=== PATIENT | male | born 1980 | race Caucasian/White ===

== ENCOUNTER 2016-10-20 19:44 | Emergency (ER) | payer OTHER ==
[2016-10-20 20:02] VITALS: BP 116/71
--- NOTE | 2016-10-20 20:36 | UC ---
Throat Pain/Nasal Yossi HPI - HPI Summary HPI Summary: ST starting 4 days ago, some chills and fatigue. Denies measured fever, cough, nasal congestion, vomiting, or rash. Has 4-yr-old child at home in pre-K - History of Current Complaint Chief Complaint: UCRespiratory Stated Complaint: SORE THROAT Time Seen by Provider: 10/20/16 20:17 Hx Obtained From: Patient Onset/Duration: Gradual Onset, Lasting Days Severity: Moderate Cough: None Associated Signs & Symptoms: Negative: Fever, Vomiting, Rash - Allergies/Home Medications Allergies/Adverse Reactions: Allergies Allergy/AdvReac Type Severity Reaction Status Date / Time No Known Allergies Allergy Verified 10/20/16 19:55 Home Medications: Home Medications Calcium Ascorbate [Vitamin C] 500 mg PO DAILY 10/20/16 [History Confirmed ] PMH/Surg Hx/FS Hx/Imm Hx Endocrine History Of: Denies: Diabetes Cardiovascular History Of: Denies: Hypertension, Congestive Heart Failure GI/ History Of: Denies: Renal Disease - Surgical History Surgical History: Yes Surgery Procedure, Year, and Place: Port placement (removed) - Family History Known Family History: Positive: Unknown - Social History Occupation: Employed Full-time - construction Alcohol Use: Occasionally Alcohol Amount: 7-8 PER WEEK Substance Use Type: None Substance Use Comment - Amount & Last Used: 3-4 TIMES PER WEEK Smoking Status (MU): Never Smoked Tobacco Have You Smoked in the Last Year: No - Immunization History Most Recent Influenza Vaccination: unk Most Recent Tetanus Shot: unk Most Recent Pneumonia Vaccination: never Review of Systems Constitutional: Chills, Fatigue Skin: Negative Eyes: Negative ENT: Sore Throat Respiratory: Negative Cardiovascular: Negative Gastrointestinal: Negative Genitourinary: Negative Motor: Negative Neurovascular: Negative Musculoskeletal: Negative Neurological: Negative Psychological: Negative All Other Systems Reviewed And Are Negative: Yes Physical Exam Triage Information Reviewed: Yes Appearance: Well-Appearing, Well-Nourished, Pain Distress - mild Vital Signs: Initial Vital Signs Temp 98.2 F 10/20/16 19:57 Pulse 68 10/20/16 19:57 Resp 16 10/20/16 19:57 BP 116/71 10/20/16 19:57 Pulse Ox 97 10/20/16 19:57 Vital Signs Reviewed: Yes Eye Exam: Normal Eyes: Positive: Conjunctiva Clear ENT Exam: Normal ENT: Positive: Hearing grossly normal, Pharyngeal erythema, TMs normal, Tonsillar swelling, Tonsillar exudate Dental Exam: Normal Neck exam: Normal Neck: Positive: Supple, Nontender, No Lymphadenopathy Respiratory Exam: Normal Respiratory: Positive: Chest non-tender, Lungs clear, Normal breath sounds, No respiratory distress, No accessory muscle use Cardiovascular Exam: Normal Cardiovascular: Positive: RRR, No Murmur Musculoskeletal Exam: Normal Neurological Exam: Normal Neurological: Positive: Alert Psychological Exam: Normal Skin Exam: Normal Throat Pain/Nasal Course/Dx - Course Course Of Treatment: RST negative - Differential Dx/Diagnosis Provider Diagnoses: Tonsillitis Discharge - Discharge Plan Condition: Stable Disposition: HOME Patient Education Materials: Tonsillitis (ED) Referrals: Daniel Mathias MD [Primary Care Provider] - Additional Instructions: Your rapid strep was negative. Most other causes of sore throat will resolve without complication on their own and do not need antibiotics. Come back if you have new or worsening symptoms.
== END 2016-10-20 21:18 | disposition home or self-care (01) ==
LOC: UCEAST 19:44
DX: J03.90 Acute tonsillitis, unspecified (principal)
CPT/HCPCS: 87651; 99211; G0463